=== PATIENT | female | born 1985 | race Caucasian/White ===

== ENCOUNTER 2017-12-12 17:31 | Emergency (ER) | payer OTHER ==
[2017-12-12 18:03] VITALS: BP 135/81
[2017-12-12] MEDS ORDERED: Lidocaine 1%* 5 ML VIAL INJ ONE (18:11)
--- NOTE | 2017-12-12 18:13 | ED ---
Upper Extremity Pain - HPI Summary HPI Summary: 32F presents with left index finger swelling for the past 4 days. She states that she cut here nails too short. She states that it is more erythema since when it started. She denies any numbness or tingling. She denies any trauma to the area. She has a history of paronychia. Denies any history of MRSA. Has no medical conditions. - History of Current Complaint Chief Complaint: UCUpperExtremity Stated Complaint: FINGER COMPLAINT Time Seen by Provider: 12/12/17 18:08 Hx Last Menstrual Period: 10/03/17 - Allergies/Home Medications Allergies/Adverse Reactions: Allergies Allergy/AdvReac Type Severity Reaction Status Date / Time No Known Allergies Allergy Verified 12/12/17 18:03 Home Medications: Home Medications medroxyPROGESTERone TAB* [Provera TAB*] 10 mg PO DAILY 12/12/17 [History Confirmed 12/12/17] PMH/Surg Hx/FS Hx/Imm Hx Endocrine/Hematology History: Denies: Hx Diabetes Cardiovascular History: Denies: Hx Hypertension Infectious Disease History: No Infectious Disease History: Denies: Traveled Outside the [place] in Last 30 Days - Family History Known Family History: Negative: Diabetes - Social History Alcohol Use: Weekly Substance Use Type: Reports: None Smoking Status (MU): Never Smoked Tobacco Review of Systems Negative: Fever Negative: Chest Pain Negative: Shortness Of Breath Positive: Edema - left index finger All Other Systems Reviewed And Are Negative: Yes Physical Exam Triage Information Reviewed: Yes Vital Signs On Initial Exam: Initial Vitals Temp Pulse Resp BP Pulse Ox 99.1 F 74 18 135/81 98 12/12/17 17:56 12/12/17 17:56 12/12/17 17:56 12/12/17 17:56 12/12/17 17:56 Vital Signs Reviewed: Yes Appearance: Positive: Well-Appearing Skin: Positive: Warm, Dry, Other - edema and erythema around left index finger nail Head/Face: Positive: Normal Head/Face Inspection Eyes: Positive: Normal, Conjunctiva Clear Respiratory/Lung Sounds: Positive: Clear to Auscultation, Breath Sounds Present Cardiovascular: Positive: Normal, RRR Musculoskeletal: Positive: Normal Neurological: Positive: Normal Psychiatric: Positive: Normal Procedures - Incision and Drainage left index finger Site: right index finger Anesthesia: Digital Instrument(s): Scalpel Diagnostics - Vital Signs Vital Signs Temp Pulse Resp BP Pulse Ox 12/12/17 17:56 99.1 F 74 18 135/81 98 - Laboratory Lab Statement: Any lab studies that have been ordered have been reviewed, and results considered in the medical decision making process. Course/Dx - Course Course Of Treatment: 32F presents with left index finger swelling for the past 4 days. She states that she cut here nails too short. She states that it is more erythema since when it started. She denies any numbness or tingling. She denies any trauma to the area. She has a history of paronychia. Denies any history of MRSA. Has no medical conditions. on exam has edema and erythema of left index finger consistent with paronychia. I&D area and got miniminal drainage. will place on bactrim. will have follow up with primary about blood pressure as is in pre-htn range at this visit. patient understand and agrees with plan. - Diagnoses Differential Diagnosis/HQI/PQRI: Positive: Other - felon, paronychia, cellulitis Provider Diagnoses: Paronychia Discharge - Sign-Out/Discharge Documenting (check all that apply): Discharge/Admit/Transfer - Discharge Plan Condition: Good Disposition: HOME Prescriptions: Sulfamethox/Trimethoprim DS* [Bactrim DS 800/160 TAB*] 1 tab PO BID #20 tab Patient Education Materials: Paronychia (ED) Referrals: Timoteo Augustine MD [Primary Care Provider] - Additional Instructions: Do warms soaks of area at least twice a day, apply neosporin and keep covered Take antibiotic twice a day for 10 days Follow up with primary within 5 days Return to ED if develop any new or worsening symptoms - Billing Disposition and Condition Condition: GOOD Disposition: Home
== END 2017-12-12 19:05 | disposition home or self-care (01) ==
LOC: UCEAST 17:31
DX: L03.012 Cellulitis of left finger (principal)
CPT/HCPCS: 10060; 99212; G0463

== ENCOUNTER 2017-12-17 17:32 | Emergency (ER) | payer OTHER ==
[2017-12-17 18:18] VITALS: BP 116/72
--- NOTE | 2017-12-17 18:33 | UC ---
Segun Baig Stephanie, scribed for Iglesia Downey MD on 12/17/17 at 1824 . HPI Wound/Suture Re-check - HPI Summary HPI Summary: The pt is a 32 y/o F presenting to the ED with c/o wound recheck over her R index finger today. The pt denies R index finger pain or swelling. - History Of Current Complaint Chief Complaint: UCGeneralIllness Stated Complaint: FINGER COMPLAINT Time Seen by Provider: 12/17/17 18:12 Hx Obtained From: Patient Hx Last Menstrual Period: 10/03/17 Onset/Duration: Gradual Onset Severity: Mild Pain Intensity: 3 Pain Scale Used: 0-10 Numeric - Allergies/Home Medications Allergies/Adverse Reactions: Allergies Allergy/AdvReac Type Severity Reaction Status Date / Time No Known Allergies Allergy Verified 12/17/17 18:18 PMH/Surg Hx/FS Hx/Imm Hx Previously Healthy: Yes Endocrine History: Other Other Endocrine History: Negative: HTN GI/ History: Other Other GI/ History: Negative: renal disease - Surgical History Surgical History: None - Family History Known Family History: Negative: Diabetes, Renal Disease - Social History Occupation: Employed Full-time Lives: With Family Alcohol Use: Weekly Substance Use Type: None Smoking Status (MU): Never Smoked Tobacco Have You Smoked in the Last Year: No Review of Systems Constitutional: Negative Skin: Negative Eyes: Negative ENT: Negative Respiratory: Negative Cardiovascular: Negative Gastrointestinal: Negative Genitourinary: Negative Motor: Negative Neurovascular: Negative Musculoskeletal: Negative Neurological: Negative Psychological: Negative All Other Systems Reviewed And Are Negative: Yes Physical Exam - Summary Physical Exam Summary: VITAL SIGNS: Reviewed. GENERAL: Patient is a well-developed and nourished FEMALE who is lying comfortable in the stretcher. Patient is not in any acute respiratory distress. HEAD AND FACE: Normocephalic EYES: PERRLA, EOMI x 2. EARS: Hearing grossly intact. MOUTH: Oropharynx within normal limits. NECK: Supple, trachea is midline, no adenopathy, no JVD, no carotid bruit. CHEST: Symmetric, no tenderness at palpation LUNGS: Clear to auscultation bilaterally. No wheezing or crackles. CVS: Regular rate and rhythm, S1 and S2 present, no murmurs or gallops appreciated. ABDOMEN: Soft, non-tender. Bowel sounds are normal. No abdominal abnormal pulsations. EXTREMITIES: Full ROM in all major joints, no edema, no cyanosis or clubbing. Wound over R index finger is clean, dry and intact. NEURO: Alert and oriented x 3. No acute neurological deficits. Speech is normal and follows commands. SKIN: Dry and warm Triage Information Reviewed: Yes Vital Signs: Initial Vital Signs Temp 98.9 F 12/17/17 18:14 Pulse 82 12/17/17 18:14 Resp 18 12/17/17 18:14 BP 116/72 12/17/17 18:14 Pulse Ox 100 12/17/17 18:14 Vital Signs Reviewed: Yes Course/Dx - Course Course Of Treatment: Patient here for wound check. Wound is clean and dry and intact there's no signs of infection. She will be discharged home with follow- up with PCP and he should develops any increasing pain, redness or swelling she should immediately return to the emergency Department R significant for further assessment. She understands and agrees. - Differential Dx - Laceration/Wound Provider Diagnoses: wound re-check Discharge - Sign-Out/Discharge Documenting (check all that apply): Discharge/Admit/Transfer - Discharge Plan Condition: Stable Disposition: HOME Patient Education Materials: Wound Infection (DC) Referrals: Timoteo Augustine MD [Primary Care Provider] - - Billing Disposition and Condition Condition: STABLE Disposition: Home The documentation as recorded by the Segun ennis Stephanie accurately reflects the service I personally performed and the decisions made by Shayan osorio Walter, MD.
== END 2017-12-17 18:30 | disposition home or self-care (01) ==
LOC: UCEAST 17:32
DX: S61.200D Unspecified open wound of right index finger without damage to nail, subsequent encounter (principal); X58.XXXD Exposure to other specified factors, subsequent encounter
CPT/HCPCS: 99211; G0463